=== PATIENT | male | born 1995 | race Caucasian/White ===

== ENCOUNTER → 2018-02-14 | Emergency (ER) | payer OTHER ==
[~2018-02-14] VITALS: Ht 170.2 cm; Wt 63.5 kg
== END | disposition home or self-care (01) ==
LOC: ER 15:01
DX: K59.09 Other constipation (principal)

== ENCOUNTER 2019-06-16 19:54 | Emergency (ER) | payer OTHER ==
[~2019-06-16] VITALS: Ht 172.7 cm; Wt 68.0 kg
== END 2019-06-16 22:53 | disposition home or self-care (01) ==
LOC: ER 19:54
DX: R51 Headache (principal); M54.2 Cervicalgia; R50.9 Fever, unspecified